=== PATIENT | male | born 1975 | race African-American/Black ===

== ENCOUNTER 2022-01-21 11:10 | Emergency (ER) | payer MEDICAID ==
[~2022-01-21] VITALS: Ht 175.3 cm; Wt 68.0 kg
[2022-01-21] MEDS ORDERED: SODIUM CHLORIDE 0.9% 1,000 ML IV ONE (11:30)
[2022-01-21 11:55] LABS: BASOPHILS % 1.1 % (0.0-2.0); EOSINOPHILS % 0.7 % (0.0-5.0); HEMATOCRIT. 36.1 % (42.0-52.0); HEMOGLOBIN. 12.4 g/dL (14.0-18.0); LYMPHOCYTES % 27.3 % (20.0-50.0); MEAN CORPUSCULAR HEMOGLOBIN 28.6 pg (28.0-32.0); MEAN PLATELET VOLUME 8.6 fl (7.4-10.4); MONOCYTES % 8.3 % (2.0-8.0); NEUTROPHILS % 62.6 % (40.0-76.0); PLATELET 233 x1000/uL (130-400); RED BLOOD CELL COUNT 4.35 mill/uL (4.7-6.1); RED CELL DISTRIBUTION WIDTH 13.6 % (11.6-14.6)
[2022-01-21 11:58] LABS: CHLORIDE 105 mEq/L (98-107)
[2022-01-21 12:01] LABS: ETHANOL BLOOD < 10 mg/dL
[2022-01-21] MEDS ORDERED: LORAZEPAM 2MG/ML CPJ IV ONE (13:30)
[2022-01-21 15:07] LABS: *COCAINE SCREEN URINE NEGATIVE (NEGATIVE)
[2022-01-21 15:09] LABS: *AMPHETAMINES SCREEN URINE PRESUMTIVE POSITIVE (NEGATIVE); *BARBITURATES SCREEN URINE NEGATIVE (NEGATIVE); *BENZODIAZEPINES SCREEN URINE NEGATIVE (NEGATIVE); CANNABINOID URINE SCREEN PRESUMTIVE POSITIVE (NEGATIVE); METHADONE URINE SCREEN NEGATIVE (NEGATIVE); OPIATES URINE SCREEN NEGATIVE (NEGATIVE); PHENCYCLIDINE URINE SCREEN PRESUMTIVE POSITIVE (NEGATIVE)
[2022-01-22 03:42] VITALS: BP 110/79
== END 2022-01-22 06:16 | disposition home or self-care (01) ==
LOC: ER 11:10
DX: T40.991A Poisoning by other psychodysleptics [hallucinogens], accidental (unintentional), initial encounter (principal); G92.9 Unspecified toxic encephalopathy; R53.1 Weakness; R07.89 Other chest pain; R06.02 Shortness of breath; T43.641A Poisoning by ecstasy, accidental (unintentional), initial encounter; F16.188 Hallucinogen abuse with other hallucinogen-induced disorder; T43.621A Poisoning by amphetamines, accidental (unintentional), initial encounter; F15.188 Other stimulant abuse with other stimulant-induced disorder; T40.711A Poisoning by cannabis, accidental (unintentional), initial encounter; F12.188 Cannabis abuse with other cannabis-induced disorder; F17.210 Nicotine dependence, cigarettes, uncomplicated; Y92.89 Other specified places as the place of occurrence of the external cause; G40.909 Epilepsy, unspecified, not intractable, without status epilepticus
CPT/HCPCS: 36415; 71045; 80053; 80305; 80320; 84484; 85025; 93005; 96361; 96374; 99285; J2060; J7030; G0480